=== PATIENT | male | born 1990 | race Two or more races ===

== ENCOUNTER 2016-12-13 13:46 | Emergency (ER) | payer OTHER ==
--- NOTE | 2016-12-13 14:20 | RAD ---
EXAMINATION: ANKLE-LEFT 3 VIEW CLINICAL INDICATION: Left ankle pain and swelling. Fall from ladder yesterday. Initial encounter. COMPARISON:None FINDINGS: No fracture or focal destruction is identified. The tibiotalar and visualized subtalar joint space relationships are maintained. Moderate soft tissue swelling is noted adjacent to the lateral malleolus. IMPRESSION: Soft tissue swelling adjacent lateral malleolus. No displaced fracture.
== END 2016-12-13 14:58 | disposition home or self-care (01) ==
LOC: ED 13:46
DX: S93.402A Sprain of unspecified ligament of left ankle, initial encounter (principal); F17.210 Nicotine dependence, cigarettes, uncomplicated; W11.XXXA Fall on and from ladder, initial encounter; Y92.9 Unspecified place or not applicable